=== PATIENT | female | born 1975 | race Caucasian/White ===

== ENCOUNTER 2016-08-11 20:39 | Observation (INO) ==
[2016-08-11 21:03] LABS: MANUAL DIFF NEEDED? NO
[2016-08-11 21:07] LABS: BASO% 0.3 % (0.0-0.8); HEMATOCRIT 53.8 % (37.0-47.0); HEMOGLOBIN 18.2 g/dL (12.0-16.0); IMM GRAN# 0.02 X1000 (0.0-0.04); IMM GRAN% 0.2 % (0.0-0.5); LYMPH% 18.1 % (20.5-51.1); MCH 34.5 PG (27-31); MCHC 33.8 g/dL (33-37); MCV 102.1 FL (81-99); MONO# 0.88 X1000 (0.11-0.59); MONO% 8.9 % (1.7-9.3); MPV 10.9 FL (7.4-10.4); NEUT% 71.5 % (42.2-75.2); PLT 268 X1000 (130-400); RBC 5.27 XMIL (4.2-5.4)
[2016-08-11 21:35] LABS: ALBUMIN 4.1 g/dL (3.5-5.0); CALCIUM 9.2 mg/dL (8.8-10.2); POTASSIUM 4.1 mmol/L (3.5-5.1); TOTAL BILIRUBIN 0.47 mg/dL (0.20-1.00); TOTAL PROTEIN 7.4 g/dL (6.3-8.3)
--- NOTE | 2016-08-11 22:29 | PROVIDER DOCUMENTATION ---
HPI-Abdominal Pain/GI Problem - General Chief Complaint: Nausea/Vomiting Stated Complaint: VOMITING, BACK/SIDE PAIN Time Seen by Provider: 08/11/16 22:06 Source: patient Allergies/Adverse Reactions: Patient Allergies Allergy/AdvReac Type Severity Reaction Status Date / Time bupropion HCl * Allergy HIVES Verified 08/11/16 22:13 [From Wellbutrin] Home Medications: Home Medication List Medication Instructions Recorded Confirmed Last Taken Type Oxycodone HCl 30 mg PO 5XDAY 12/13/14 08/11/16 08/11/16 History Aclidinium [place] Inhaler 1 puff INH PRN PRN 09/09/15 08/11/16 03/31/16 History [Tudorza Pressair Inhaler] Budesonide/Formoterol Fumarate 10.2 gm IH PRN PRN 09/09/15 08/11/16 03/31/16 History [Symbicort 160-4.5 Mcg Inhaler] Furosemide [Lasix] 20 mg PO QAM 09/09/15 08/11/16 08/11/16 History Lidocaine 5% Cream [Lmx 5 Cream] 1 applicatn TOP 4XDAY PRN PRN 09/09/1508/11/16 History Potassium Chloride E.r. [Micro-K] 10 meq PO QAM 09/09/15 08/11/16 08/11/16 History Oxycodone I.r. [Oxy Ir] 15 mg PO Q6H PRN PRN #12 tablet 09/12/15 08/11/16 Rx Estradiol 2 mg PO QAM 08/11/16 08/11/16 08/11/16 History - History of Present Illness-ABD Nature of Presenting Problems: 41 Y/O F presents to ED with Abdominal Pain. Pt c/o of abd pain with N/D no V. Pt states that she has a 2 day onset hx of pain stated that it went away and then came back yesterday. Right sided ABD pain with chills,diaphoretic. Last BM today around 12pm Abdominal Pain Onset Location: reports: RLQ Pain Radiation: reports: no radiation Quality of Pain: reports: cramping Severity in ED: reports: moderate Onset/Duration: reports: 2 days ago Timing: reports: still present Activities at Onset: reports: none Exposure to sick contacts?: No Associated Symptoms: reports: diaphoresis, diarrhea, fever/chills (chills no fever), nausea Last BM: this afternoon Review of Systems - Adult - REVIEW OF SYSTEMS - ADULT Constitutional: reports: chills. denies: fever Eyes: reports: no symptoms reported Ears, Nose, Mouth & Throat: reports: no symptoms reported Cardiovascular: reports: no symptoms reported Respiratory: denies: cough, shortness of breath Gastrointestinal: reports: abdominal pain, diarrhea, nausea. denies: vomiting Genitourinary: reports: no symptoms reported Musculoskeletal: reports: no symptoms reported Integumentary: reports: no symptoms reported Neurological: reports: no symptoms reported Psychiatric: reports: no symptoms reported Endocrine: reports: no symptoms reported Hematologic/Lymphatic: reports: no symptoms reported Allergic/Immunologic: reports: no symptoms reported All Other Systems: Reviewed and Negative Past History - Adult - PAST MEDICAL HISTORY-ADULT Review of Records: reports: Old Records Reviewed, Nursing Assessment Review, Medications Reviewed, Social history reviewed & non-contributory. Major Childhood Illnesses: reports: denies history Cardiovascular: reports: denies history Respiratory: reports: denies history Gastrointestinal: reports: denies history Obstetrical/Gynecological: reports: denies history Genitourinary: reports: denies history Musculoskeletal: reports: arthritis, chronic pain, intervertebral disc disease, neck/back injury Neurological: reports: denies history Endocrine/Immune: reports: denies history Other Conditions: reports: denies history - PRIOR SURGERIES/PROCEDURES Surgical/Procedure History: reports: tonsillectomy, other (D&C, TMJ) - IMMUNIZATION STATUS Childhood Immunizations: See Nurse Assessment Flu Vaccine: See Nurse Assessment - FAMILY HISTORY Family History: reviewed, not pertinent - SOCIAL HISTORY Smoking: cigarettes, greater than 1 pack/day Alcohol Use Frequency: occasionally Living Situation: family Physical Exam-General - PHYSICAL EXAM-ADULT Initial Vital Signs Reviewed: Yes - CONSTITUTIONAL General Appearance: appears well, alert, no apparent distress - EYES Eyes: PERRL/EOMI, pink conjunctivae, fundi clear, no AV nicking - HEAD, EARS, NOSE, MOUTH & THROAT HENMT: normocephalic/atraumatic, moist mucous membranes, normal ENT inspection, TMs normal, pharynx normal - NECK Neck: non-tender, full range of motion, supple, normal inspection - RESPIRATORY Respiratory: chest non-tender, lungs clear, normal breath sounds - CARDIOVASCULAR Cardiovascular: normal peripheral pulses, regular rate, rhythm - GASTROINTESTINAL (ABDOMEN) Abdominal Exam: guarding, tenderness (LLQ>RLQ) - LYMPHATIC Lymphatic: no adenopathy - MUSCULOSKELETAL Back Exam: normal inspection, no CVA tenderness, no vertebral tenderness Extremity: normal range of motion, non-tender - SKIN Integumentary: normal color, normal turgor, warm/dry - NEUROLOGIC Neurologic: loss prevention lead II-XII nml as tested - PSYCHIATRIC Psych/Mental Status: normal mood/affect, normal thought content, normal thought process, oriented x 3 Progress - PLAN OF CARE/RESULTS Progress/Plan/Lab Results: Laboratory Tests 08/11/16 08/11/16 08/11/16 20:52 20:52 20:52 WBC 9.93 RBC 5.27 Hgb 18.2 H Hct 53.8 H MCV 102.1 H MCH 34.5 H MCHC 33.8 RDW Std Deviation 13.0 Plt Count 268 MPV 10.9 H Immature Gran % (Auto) 0.2 Neut % (Auto) 71.5 Lymph % (Auto) 18.1 L [place] % (Auto) 8.9 Eos % (Auto) 1.0 Baso % (Auto) 0.3 Immature Gran # (Auto) 0.02 Neut # (Auto) 7.10 H Lymph # (Auto) 1.80 [place] # (Auto) 0.88 H Eos # (Auto) 0.10 Baso # (Auto) 0.03 D-Dimer 1.08 H Sodium 141 Potassium 4.1 Chloride 97 L Carbon Dioxide 27 Anion Gap 17 BUN 10 Creatinine 1.3 H Estimated GFR/1.73 m2 45 BUN/Creatinine Ratio 8 Glucose 97 Calculated Osmolality 280 Calcium 9.2 Total Bilirubin 0.47 AST 26 ALT 25 Alkaline Phosphatase 127 H Total Protein 7.4 Albumin 4.1 Globulin 3.3 Albumin/Globulin Ratio 1.2 Amylase 36 Lipase 41 Urine Source Urine Color Urine Turbidity Urine pH Ur Specific Filer Urine Protein Ur Glucose (Stick) Ur Ketones (Stick) Urine Blood Urine Nitrite Urine Bilirubin Urobilinogen Dipstick Urine Leukocytes Urine WBC (Auto) Urine RBC (Auto) U Epithel Cells (Auto) Urine Bacteria (Auto) 08/11/16 22:30 WBC RBC Hgb Hct MCV MCH MCHC RDW Std Deviation Plt Count MPV Immature Gran % (Auto) Neut % (Auto) Lymph % (Auto) [place] % (Auto) Eos % (Auto) Baso % (Auto) Immature Gran # (Auto) Neut # (Auto) Lymph # (Auto) [place] # (Auto) Eos # (Auto) Baso # (Auto) D-Dimer Sodium Potassium Chloride Carbon Dioxide Anion Gap BUN Creatinine Estimated GFR/1.73 m2 BUN/Creatinine Ratio Glucose Calculated Osmolality Calcium Total Bilirubin AST ALT Alkaline Phosphatase Total Protein Albumin Globulin Albumin/Globulin Ratio Amylase Lipase Urine Source CLEAN CATCH Urine Color YELLOW Urine Turbidity HAZY Urine pH 6.0 Ur Specific Filer 1.003 Urine Protein 50 A Ur Glucose (Stick) NEGATIVE Ur Ketones (Stick) NEGATIVE Urine Blood NEGATIVE Urine Nitrite NEGATIVE Urine Bilirubin NEGATIVE Urobilinogen Dipstick NORMAL Urine Leukocytes NEGATIVE Urine WBC (Auto) 10-20 A Urine RBC (Auto) <10 U Epithel Cells (Auto) >10 A Urine Bacteria (Auto) 3+ Orders Category Date Time Status Admit - [facility] Routine AdmDCTranf 08/11/16 23:53 Ordered Activity - Bed Rest with BRP ORDERED Care 08/11/16 23:53 Ordered Call Admitting on Arrival AT ADMISSION Care 08/11/16 23:53 Ordered Neurological Check Q4H Care 08/11/16 23:53 Ordered Saline Loc DIRECTED Care 08/11/16 20:49 Active Saline Loc DIRECTED Care 08/11/16 23:53 Ordered NPO Diet 08/11/16 20:49 Active ANKLE COMPLETE LEFT [RAD] Stat Exams 08/11/16 20:[address] ABD/PELVIS W/ IV CONT ONLY [CT] Stat Exams 08/11/16 22:35 Taken FLAT/UPRIGHT ABD/1 VIEW CHEST [RAD] Stat Exams 08/11/16 21:22 Taken AMYLASE [CHEM] Stat Lab 08/11/16 20:52 Completed CBC WITH ELECTRONIC DIFF [HEME] Stat Lab 08/11/16 20:52 Completed COMPREHENSIVE METABOLIC PANEL [CHEM] Stat Lab 08/11/16 20:52 Completed D-DIMER [CHEM] Stat Lab 08/11/16 20:52 Completed LIPASE [CHEM] Stat Lab 08/11/16 20:52 Completed URINALYSIS W/POSS RFLX CULT [URINALYSIS] Stat Lab 08/11/16 22:30 Completed 0.9% Sodium Chloride Inj [Ns] 1,000 ml Med 08/11/16 22:35 Discontinued IV 999 mls/hr 0.9% Sodium Chloride Inj [Ns] 1,000 ml Med 08/11/16 23:51 Active IV 999 mls/hr CefTRIAXONE 1 GM/NS [Rocephin 1 gm/Ns] 50 ml Med 08/11/16 23:29 Active IV NOW Morphine Med 08/11/16 23:53 Ordered 2 mg IV Q4H PRN PRN Ondansetron [Zofran] Med 08/11/16 22:35 Discontinued 4 mg IV NOW ONE Ondansetron [Zofran] Med 08/11/16 23:53 Ordered 4 mg IV Q4H PRN PRN Pantoprazole [Protonix] Med 08/11/16 22:35 Discontinued 40 mg IV NOW ONE Piperacil/Tazobact 4.5 gm/Ns [Zosyn 4.5 gm/Ns] 100 ml Med 08/11/16 23:51 Active IV NOW Promethazine [Phenergan] Med 08/11/16 23:02 Discontinued 25 mg IV NOW ONE Sodium Chloride 0.9% Med 08/11/16 22:35 Discontinued 10 ml INJ NOW ONE Sodium Chloride 0.9% Med 08/11/16 23:02 Discontinued 10 ml INJ NOW ONE Vital Signs - 24 hr 08/11/16 20:45 Temperature 98.3 F Pulse Rate 105 H Respiratory 14 Rate Blood Pressure 156/105 O2 Sat by Pulse 100 Oximetry - XRAY 1 XRAY Study: Abdomen Impression: Normal XRAY Interpretation: Nonspecific gas - CT/MRI 1 CT Study: Abdomen Impression: Abnormal (Abnormal appendix suspicious for acute appendicitis. No significant adjacent inflammatory changes are seen. Mild wall thickening of the cecum is indeterminate.) - CONSULTS/PCP/HOSPITALIST Notification #1 *Consult/PCP/Hospitalist*: Time Discussed: 23:52 Reason/Comments: Plan of Care Consult Disposition: Admit (Admit accepted) Departure - Departure Time of Disposition Order: 23:57 DIAGNOSIS: Abdominal pain Qualifiers: Abdominal location: unspecified location Qualified Code(s): R10.9 - Unspecified abdominal pain Appendicitis Qualifiers: Appendicitis type: acute appendicitis Acute appendicitis type: unspecified acute appendicitis type Qualified Code(s): K35.80 - Unspecified acute appendicitis Disposition: ADMITTED INPATIENT 09 Certified Medical Emergency: Emergent Condition: Stable Additional Instructions: ED Follow Up Instructions: You have been treated by a care provider in the Emergency Department. These instructions are being provided to you so you can have an understanding of how to care for yourself upon discharge. Upon discharge from the Emergency Department, you are responsible for making arrangements for follow-up care by a physician of your choice. Take all prescribed medications as directed. Return to the Emergency Department immediately for any new or worsening symptoms. You may call the Physician Referral phone number at [phone] to obtain a list of Physicians who are taking new patients. Attestation - Scribe Verification/Attestation Scribe:: Kayce Newton Acting as Scribe for:: Tristan Potter Scribe documention review:: This chart was documented by a scribe and accurately reflects the service the provider performed and the decisions made by the provider.
[2016-08-11] MEDS ORDERED: PROTONIX IV ONE (22:35)
[2016-08-11] MEDS ORDERED: NS 1,000 ML IV ONE ×2 (22:35→23:51)
[2016-08-11] MEDS ORDERED: ZOFRAN IV ONE (22:35)
[2016-08-11] MEDS ORDERED: SODIUM CHLORIDE 0.9% INJ ONE ×2 (22:35→23:02)
[2016-08-11 22:46] LABS: URINE SOURCE CLEAN CATCH
[2016-08-11 22:51] LABS: BILIRUBIN URINE NEGATIVE (NEGATIVE); BLOOD URINE NEGATIVE (NEGATIVE); COLOR YELLOW; GLUCOSE URINE NEGATIVE (NEGATIVE); LEUKOCYTES URINE NEGATIVE (NEGATIVE); NITRITE URINE NEGATIVE (NEGATIVE); PROTEIN URINE 50 mg/dL (NEGATIVE); SP GRAVITY URINE 1.003; TURBIDITY URINE HAZY (CLEAR); UROBILINOGEN URINE NORMAL (NORMAL)
[2016-08-11 22:53] LABS: UR EPITHELIAL CELLS >10 /HPF (<10); URINE BACTERIA 3+ /HPF; URINE RBC <10 /HPF (<10)
[2016-08-11] MEDS ORDERED: PHENERGAN IV ONE (23:02)
[2016-08-11] MEDS ORDERED: ROCEPHIN 1 GM/NS 50 ML IV ONE (23:29)
[2016-08-11] MEDS ORDERED: ZOSYN 4.5 GM/NS 100 ML IV ONE (23:51)
[2016-08-12] MEDS ORDERED: MORPHINE ONE ×2 (00:41→17:56)
[2016-08-12] MEDS: MORPHINE IV PRN ×6 (00:52→23:29)
[2016-08-12 01:31] LABS: URINE CULTURE NEEDED? YES; URINE MICRO REVIEW NEEDED? YES
[2016-08-12 01:32] LABS: URINE CASTS NONE SEEN; URINE CRYSTALS NONE SEEN; URINE SMALL ROUND CELLS NONE SEEN
[2016-08-12] MEDS: ZOFRAN IV PRN ×2 (06:30→19:11)
--- NOTE | 2016-08-12 06:59 | HISTORY AND PHYSICAL ---
CHIEF COMPLAINT: Diffuse abdominal pain, nausea, vomiting. HISTORY OF PRESENT ILLNESS: This is a 41-year-old lady who presents to the ED with abdominal pain. It seems to be worse in the left lower quadrant, but it is periumbilical as well. She also has nausea and vomiting that has been ongoing for weeks, but it seems to have worsened over the past couple of days, along with her abdominal pain. Because of that, she sought medical attention. A CT scan was done revealing an enlarged appendix. PAST MEDICAL AND SURGICAL HISTORY: She has a history of hypertension. She has a history of chronic back pain, for which she is under the care of a pain management physician. Her previous surgery includes TMJ surgery, bilateral tubal ligation, tonsillectomy, and hysterectomy 1 year ago. MEDICATIONS: Her medications include losartan daily, the dose of which she does not recall; Lasix 20 mg daily, Micro-K 10 mEq p.o. every a.m., estradiol 2 mg p.o. every a.m., oxycodone 30 mg p.o. 5 times a day, Oxy IR 15 mg every 6 hours p.r.n., Tudorza Pressair inhaler 1 puff as needed, Symbicort 160/4.5 mcg inhaler p.r.n., lidocaine 5% cream applied topically 4 times a day. ALLERGIES: She is allergic to Wellbutrin. SOCIAL HISTORY: She does smoke 1 pack per day. She occasionally drinks alcohol. FAMILY HISTORY: Noncontributory. REVIEW OF SYSTEMS: Pertinent for back pain chronically, the nausea and vomiting that she has experienced recently. She denies any fever or chills. Her other subsystems are negative. PHYSICAL EXAMINATION: VITAL SIGNS: Temperature is 99.1 degrees, heart rate 83, respiratory rate 16, blood pressure 148/101. HEENT: Normocephalic. No intraoral lesions are noted. NECK: Without adenopathy. LUNGS: Clear. HEART: Regular rate and rhythm. ABDOMEN: Soft. Bowel sounds are hypoactive. I did not elicit any significant or rebound tenderness. Psoas sign is negative. No masses are palpated. DIAGNOSTIC DATA: White count is 9900, hemoglobin 18, hematocrit 53. ASSESSMENT AND PLAN: Enlarged appendix consistent with acute appendicitis on CT. Her clinical exam is quite benign. I discussed the recommendation of proceeding with appendectomy. She wants to do that. We will proceed later today. She will stay nothing by mouth. We will give her intravenous fluids for hydration.
[2016-08-12] MEDS: NS 1,000 ML IV SCH (07:32)
--- NOTE | 2016-08-12 08:10 | Diag Imaging Result Document ---
PROCEDURE NAME: CT ABD/PELVIS W/ IV CONT ONLY - 08/11/2016 CT ABDOMEN AND PELVIS WITH INTRAVENOUS CONTRAST: A CT dose reduction protocol was used. COMPARISON: 01/12/2015. FINDINGS: The appendix is greatly dilated measuring about 15 mm and filled with fluid. No significant inflammation of the surrounding fat. Mild wall thickening of the cecum adjacent to this is indeterminate. There is significant collapse of bowel in this region. No free air, free fluid, or lymphadenopathy. Uterus is absent. Urinary bladder and rectum are normal. The lung bases are clear except for a granuloma in the right lower lobe. Heart size is normal. The liver, gallbladder, spleen, pancreas, adrenals, and kidneys are unremarkable. Bony structures are intact. IMPRESSION: Dilated appendix compatible with acute appendicitis. [facility]
--- NOTE | 2016-08-12 08:36 | Diag Imaging Result Document ---
PROCEDURE NAME: FLAT/UPRIGHT ABD/1 VIEW CHEST - 08/11/2016 PLAIN RADIOGRAPH OF THE CHEST AND ABDOMEN, 3 VIEWS: COMPARISON: Chest radiograph dated 03/31/2016. FINDINGS: There are grossly unremarkable bowel gas and stool patterns. There is no obstructive bowel pattern. There is no evidence of large-volume free abdominal gas. There are a couple of phleboliths that project over the pelvis. There are calcified splenic granulomata. There is no evidence of organomegaly. There is a calcified granuloma in the right lower lung zone peripherally and calcified right hilar lymph nodes indicating prior granulomatous disease. The lungs are clear otherwise. Cardiac silhouette and central vasculature are unremarkable. IMPRESSION: No definite acute pathology by plain radiograph.
--- NOTE | 2016-08-12 08:44 | Diag Imaging Result Document ---
PROCEDURE NAME: ANKLE COMPLETE LEFT - 08/11/2016 PLAIN RADIOGRAPH OF THE LEFT ANKLE, 3 VIEWS: COMPARISON: None available. FINDINGS: There is no discrete fracture, dislocation, or intrinsic osseous lesion. The joint spaces are preserved. There is, perhaps, minimal soft tissue edema overlying the lateral malleolus. IMPRESSION: No definite acute osseous abnormality.
[2016-08-12] MEDS ORDERED: PHENERGAN IV ONE (10:14)
[2016-08-12] MEDS ORDERED: SODIUM CHLORIDE 0.9% INJ ONE (10:14)
[2016-08-12] MEDS ORDERED: INVANZ 1 GM/NS 50 ML ONE (16:26)
[2016-08-12] MEDS ORDERED: MARCAINE 0.25% PF/EPI 1:200,000 ONE (16:29)
[2016-08-12] MEDS ORDERED: LR 1,000 ML ONE (16:29)
[2016-08-12] MEDS: DILAUDID ONE ×4 (17:30→17:45)
[2016-08-12] MEDS: PHENERGAN ONE ×2 (17:52→18:00)
[2016-08-12] MEDS ORDERED: NS 500 ML ONE (17:55)
[2016-08-12] MEDS ORDERED: DIPRIVAN 1% ONE (17:57)
[2016-08-12] MEDS ORDERED: FENTANYL ONE (17:57)
[2016-08-12] MEDS ORDERED: OXY IR PO PRN (18:09)
[2016-08-12] MEDS ORDERED: TUDORZA PRESSAIR INHALER INH PRN (18:09)
[2016-08-12] MEDS ORDERED: LMX 5 CREAM TOP PRN (18:09)
--- NOTE | 2016-08-12 18:18 | OPERATIVE NOTE ---
PROCEDURE DATE: 08/12/2016 PROCEDURE: Laparoscopic appendectomy. SURGEON: Galdino Langston MD ANTIQUE FURNITURE REPAIRER: Noe. PREOPERATIVE DIAGNOSIS: Acute appendicitis. POSTOPERATIVE DIAGNOSIS: Acute appendicitis. DESCRIPTION OF PROCEDURE: Satisfactory general endotracheal anesthesia was achieved, the abdomen was prepped and draped in a sterile fashion. We anesthetized skin of the umbilicus, incised the skin, and introduced a 5 trocar Optiview technique into the abdominal cavity. We insufflated through this trocar. Under direct visualization, a 12 trocar in the lower hypogastrium, 5 trocar in the right lower quadrant. We placed the patient in Trendelenburg and turned her to the left. We identified the appendix. It was enlarged and injected. We grasped the mesoappendix, used the LigaSure to divide the mesoappendix down to the base of the appendix. We then introduced the Endo- OBEY hargrove cartridge, stapled, and divided the base of the appendix. We then placed the appendix within a Pleatman pouch and delivered it out of the abdominal cavity. We looked back. Hemostasis was satisfactory. No other evidence of abnormality was identified. We then desufflated and removed our trocars. We closed the fascia at the lower hypogastric trocar site with a 2-0 Polysorb [id number] fascial stitch. We then closed the skin at each incision 4-0 Polysorb subcuticular stitches. Sterile OpSite were applied. She tolerated it well, was sent to the recovery room in satisfactory condition.
[2016-08-12] MEDS: OXYCONTIN PO SCH (20:45)
[2016-08-13] MEDS: OXY IR PO PRN ×2 (02:00→09:21)
[2016-08-13] MEDS: MORPHINE IV PRN (05:06)
[2016-08-13] MEDS: NS 1,000 ML IV SCH (05:06)
[2016-08-13] MEDS ORDERED: ZOFRAN ONE (08:14)
[2016-08-13] MEDS ORDERED: QUELICIN (DOSE) ONE (08:14)
[2016-08-13] MEDS ORDERED: DECADRON ONE (08:14)
[2016-08-13] MEDS ORDERED: XYLOCAINE-MPF 2% ONE (08:14)
[2016-08-13 08:35] VITALS: BP 120/71
[2016-08-13] MEDS ORDERED: ESTRACE PO SCH (09:00)
[2016-08-13] MEDS ORDERED: KLOR-CON PO SCH (09:00)
[2016-08-13] MEDS ORDERED: LASIX PO SCH (09:00)
[2016-08-13] MEDS: OXYCONTIN PO SCH (11:17)
== END 2016-08-13 11:43 | disposition home or self-care (01) ==
LOC: ED 20:39 → EDIPHOLD 08-12 04:08 → 3N 08-12 07:07
PROVIDERS: ADMIT Surgery; ATTEND Surgery
DX: K35.80 Unspecified acute appendicitis (principal); J44.9 Chronic obstructive pulmonary disease, unspecified; I10 Essential (primary) hypertension; G89.29 Other chronic pain; R10.9 Unspecified abdominal pain; R11.2 Nausea with vomiting, unspecified; R10.32 Left lower quadrant pain; M54.9 Dorsalgia, unspecified; R19.7 Diarrhea, unspecified; R61 Generalized hyperhidrosis; Z79.899 Other long term (current) drug therapy; Z79.891 Long term (current) use of opiate analgesic; Z79.890 Hormone replacement therapy; F17.210 Nicotine dependence, cigarettes, uncomplicated
CPT/HCPCS: 36415; 74022; 74177; 80053; 81001; 82150; 83690; 85025; 85379; 87088; 88304; 88313; 96361; 96365; 96367; 96375; 96376; C9113; G0378; J0330; J0696; J1100; J1170; J1335; J2270; J2405; J2543; J2550; J3010; J7030; J7040; J7120; Q9967; S0164

== ENCOUNTER 2019-02-22 12:28 | Observation (INO) ==
[2019-02-22] MEDS ORDERED: ZOFRAN ODT PO ONE (12:45)
[2019-02-22] MEDS ORDERED: VITAMIN B-1 PO ONE (12:45)
[2019-02-22] MEDS ORDERED: ASPIRIN PO ONE (12:51)
--- NOTE | 2019-02-22 12:54 | PROVIDER DOCUMENTATION ---
HPI-Chest Pain - General Chief Complaint: Chest Pain Stated Complaint: CP,SOB,DIZZINESS,NAUSEA Time Seen by Provider: 02/22/19 12:38 Source: patient Allergies/Adverse Reactions: Patient Allergies Allergy/AdvReac Type Severity Reaction Status Date / Time bupropion HCl * Allergy HIVES Verified 02/23/18 19:15 [From Wellbutrin] Home Medications: Home Medication List Medication Instructions Recorded Confirmed Last Taken Type Oxycodone I.r. [Oxy Ir] 30 mg PO TID PRN 08/12/16 02/23/18 02/23/18 07:00 History Morphine E.r. [Ms Contin] 30 mg PO Q12HR 02/23/18 02/23/18 02/23/18 07:00 History ATORVAstatin [Lipitor] 40 mg PO QHS #30 tab 02/25/18 Unknown Rx Aspirin [Aspirin EC] 81 mg PO QAM #30 tablet.dr 02/25/18 Unknown Rx Felodipine [Felodipine ER] 5 mg PO QAM #30 tab.er.24h 02/25/18 Unknown Rx Furosemide [Lasix] 20 mg PO QAM #30 tab 02/25/18 Unknown Rx Potassium Chloride E.r. [Micro-K] 10 meq PO QAM #30 cap 02/25/18 Unknown Rx Ubidecarenone/Vitamin E Mixed 400 mg PO DAILY #30 cap 02/25/18 Unknown Rx [Coq10 Sg 100 Softgel] Dicyclomine [Bentyl] 10 mg PO 4XDAY #50 cap 03/23/18 Unknown Rx Famotidine [Pepcid] 20 mg PO DAILY #30 tab 03/23/18 Unknown Rx Loperamide HCl [Imodium A-D] 2 mg PO DIRECTED #30 tab 03/23/18 Unknown Rx Ondansetron [Zofran Odt] 4 mg PO Q6-8H PRN PRN #20 03/23/18 Unknown Rx tab.rapdis - History of Present Illness-CP Nature of Presenting Problem: 89 YO F pmh for CAD s/p CABG 2 years ago presents with an episode of substernal CP that began 3 hours ago. Some associated nausea and diaphoresis. Pt states the pain is easing up some. She had the CABG performed in [place] and has not followed up with cardiology since. Location: reports: substernal Chest Pain Radiation: reports: no radiation Quality of Pain: reports: fullness, pressure, sharp Onset/Duration: 1-3 hours ago Timing: still present, improving Context/Activities at Onset: reports: light activity Modifying Factors: improves with: nothing Associated Symptoms: reports: diaphoresis, dizziness, nausea Nitro Today/Relief: no nitro taken today Aspirin Treatment Today: no aspirin today Similar Symptoms Previously?: Yes Recently Seen Here or By Another Healthcare Provider: No Review of Systems - Adult - REVIEW OF SYSTEMS - ADULT Constitutional: reports: see HPI. denies: chills, fever Eyes: reports: no symptoms reported Ears, Nose, Mouth & Throat: reports: no symptoms reported Cardiovascular: reports: chest pain, palpitations. denies: edema Respiratory: denies: cough, shortness of breath, wheezing Gastrointestinal: reports: no symptoms reported Genitourinary: reports: no symptoms reported Musculoskeletal: reports: no symptoms reported Integumentary: reports: other (diaphoresis) Neurological: reports: dizziness/vertigo. denies: headache/migraines, syncope Psychiatric: reports: anxiety Endocrine: reports: no symptoms reported Hematologic/Lymphatic: reports: no symptoms reported Past History - Adult - PAST MEDICAL HISTORY-ADULT Review of Records: reports: Old Records Reviewed, Nursing Assessment Review Major Childhood Illnesses: reports: denies history Cardiovascular: reports: HTN, hyperlipidemia Respiratory: reports: denies history Gastrointestinal: reports: denies history Obstetrical/Gynecological: reports: denies history Genitourinary: reports: denies history Musculoskeletal: reports: arthritis, chronic pain, intervertebral disc disease, neck/back injury Neurological: reports: denies history Psychiatric: reports: denies history Endocrine/Immune: reports: denies history Other Conditions: reports: denies history - PRIOR SURGERIES/PROCEDURES Surgical/Procedure History: reports: appendectomy, CABG, hysterectomy, BTL, tonsillectomy, other (D&C, TMJ) - IMMUNIZATION STATUS Childhood Immunizations: See Nurse Assessment Flu Vaccine: See Nurse Assessment - FAMILY HISTORY Family History: reviewed, not pertinent - SOCIAL HISTORY Smoking: cigarettes Substance Use: alcohol Alcohol Use Frequency: every day Number of drinks per typical drinking period:: 3-4 drinks Living Situation: family Physical Exam-General - PHYSICAL EXAM-ADULT Initial Vital Signs Reviewed: Yes - CONSTITUTIONAL General Appearance: alert, anxious - EYES Eyes: PERRL/EOMI, pink conjunctivae - HEAD, EARS, NOSE, MOUTH & THROAT HENMT: moist mucous membranes - NECK Neck: full range of motion, supple - RESPIRATORY Respiratory: lungs clear, no pleuratic chest pain, no respiratory distress - CARDIOVASCULAR Cardiovascular: no murmur, tachycardia - GASTROINTESTINAL (ABDOMEN) Abdominal Exam: non tender, soft - MUSCULOSKELETAL Back Exam: normal inspection, no CVA tenderness Extremity: normal range of motion, normal gait, normal inspection - SKIN Integumentary: diaphoresis - NEUROLOGIC Neurologic: grossly normal, no motor/sensory deficits - PSYCHIATRIC Psych/Mental Status: oriented x 3, anxious - HEART Score HEART Score: History: Moderately Suspicious HEART Score: ECG: Normal HEART Score: Age: 45-65 Years HEART Score: Risk Factors for Atherosclerotic Disease: > or = 3 Risk Factors or History of Atherosclerotic Disease HEART Score: Troponin: < or = Normal Limit Total HEART Score:: 4 Progress - PLAN OF CARE/RESULTS Progress/Plan/Lab Results: Vital Signs - 8 hr 02/22/19 12:33 02/22/19 13:01 02/22/19 14:01 Temperature 98.4 F Pulse Rate 96 H 92 H 79 Respiratory Rate 18 19 18 Blood Pressure 161/110 142/100 130/100 O2 Sat by Pulse Oximetry 97 95 95 Laboratory Results - last 24 hr 02/22/19 02/22/19 02/22/19 13:19 13:19 13:19 WBC 10.13 RBC 5.15 Hgb 17.2 H Hct 50.9 H MCV 98.8 MCH 33.4 H MCHC 33.8 RDW Std Deviation 12.6 Plt Count 229 MPV 10.7 H Immature Gran % (Auto) 0.3 Neut % (Auto) 79.6 H Lymph % (Auto) 13.3 L [place] % (Auto) 6.2 Eos % (Auto) 0.3 Baso % (Auto) 0.3 Immature Gran # (Auto) 0.03 Neut # (Auto) 8.06 H Lymph # (Auto) 1.35 [place] # (Auto) 0.63 H Eos # (Auto) 0.03 Baso # (Auto) 0.03 Sodium 141 Potassium 4.3 Chloride 96 L Carbon Dioxide 28 Anion Gap 17 BUN 11 Creatinine 0.6 Estimated GFR/1.73 m2 > 60 BUN/Creatinine Ratio 18 Glucose 143 H Calculated Osmolality 283 Calcium 9.2 Total Bilirubin 0.77 AST 54 H ALT 44 H Alkaline Phosphatase 91 Creatine Kinase 109 Troponin T < 0.010 Total Protein 7.2 Albumin 4.6 Globulin 2.6 Albumin/Globulin Ratio 1.8 TSH 02/22/19 02/22/19 13:19 16:23 WBC RBC Hgb Hct MCV MCH MCHC RDW Std Deviation Plt Count MPV Immature Gran % (Auto) Neut % (Auto) Lymph % (Auto) [place] % (Auto) Eos % (Auto) Baso % (Auto) Immature Gran # (Auto) Neut # (Auto) Lymph # (Auto) [place] # (Auto) Eos # (Auto) Baso # (Auto) Sodium Potassium Chloride Carbon Dioxide Anion Gap BUN Creatinine Estimated GFR/1.73 m2 BUN/Creatinine Ratio Glucose Calculated Osmolality Calcium Total Bilirubin AST ALT Alkaline Phosphatase Creatine Kinase Troponin T < 0.010 Total Protein Albumin Globulin Albumin/Globulin Ratio TSH 1.99 Orders Category Date Time Status Cardiac Monitoring DIRECTED Care 02/22/19 13:06 Active Saline Loc NOW Care 02/22/19 12:46 Active cxr [CHEST-1 VIEW] [RAD] Stat Exams 02/22/19 13:06 Completed CBC WITH ELECTRONIC DIFF [HEME] Stat Lab 02/22/19 13:19 Completed CK PROFILE [SP CHEM] Stat Lab 02/22/19 13:19 Completed COMPREHENSIVE METABOLIC PANEL [CHEM] Stat Lab 02/22/19 13:19 Completed TROPONIN T Stat Lab 02/22/19 13:19 Completed TROPONIN T Stat Lab 02/22/19 16:23 Completed TSH Stat Lab 02/22/19 13:19 Completed 0.9% Sodium Chloride Inj [Ns] 1,000 ml Med 02/22/19 14:44 Discontinued IV 999 mls/hr Aspirin Med 02/22/19 12:51 Discontinued 324 mg PO NOW ONE Lorazepam [Ativan] Med 02/22/19 14:44 Discontinued 0.5 mg PO NOW ONE Ondansetron Odt [Zofran Odt] Med 02/22/19 12:45 Discontinued 4 mg PO NOW ONE Thiamine [Vitamin B-1] Med 02/22/19 12:45 Discontinued 100 mg PO NOW ONE EKG [EKG] Stat Ther 02/22/19 12:45 Draft Transfer/Admit Order [TRANSFER] Routine Transfer 02/22/19 16:52 Ordered Result Diagrams: 02/22/19 13:19 02/22/19 13:19 - REASSESSMENT Reassessment #1 Time Reassessed: 14:43 Status: improving (pt states her nausea is improving. states she drinks a couple shots of whiskey but not every day. her last time was last night. she is shaky on exam. will give fluids and ativan.) Reassessment #2 Time Reassessed: 16:26 Status: improving (pt improving, HR down. Will finish fluids then plan for discharge with follow up if 2nd trop is normal. Rx for atarax.) - EKG 1 Time of EKG reading by physician:: 12:42 EKG Read and Signed by:: You Angulo EKG Interpretation (*Must complete 3 of following elements*): Abnormal Rate: 95 Rhythm: NSR [place]: normal [place] Interval: normal ST Wave: non-specific ST changes (t wave abnormality, similar to previous EKG Mar 2017.) Prior EKG Comparison: unchanged from prior - XRAY 1 XRAY Study: Chest Impression: See EMR Report (HISTORY: CP TECHNIQUE: Portable chest COMPARISON: 02/23/2018 FINDINGS: The lungs are well expanded. The heart is not enlarged. There are sternal wires. The vessels are not distended. There are no infiltrates. No effusion identified. Right granuloma with calcified right hilar nodes. IMPRESSION: No acute abnormality. Electronically signed by Robby Sanchez 02/22/2019 1:28 PM) - CONSULTS/PCP/HOSPITALIST Notification #1 *Consult/PCP/Hospitalist*: Dr. Hagan Time Discussed: 16:52 Consult Disposition: Will see in ED Departure - Departure Date of Disposition Decision: 02/22/19 Time of Disposition Decision: 16:48 DIAGNOSIS: Nausea, Chest pain, Coronary artery disease, Tachycardia Disposition: ADMITTED INPATIENT Certified Medical Emergency: Emergent Condition: Stable Referrals and Follow-Ups: None,PCP [Primary Care Provider] - - Critical Care Note This patient required my direct & personal management of CC.: No Attestation - Physician/ RIP Attestation The physician spent face to face time with patient:: Yes Advanced Practice Provider documentation review:: Supervising physician onsite and consulted in the evaluation and care of this patient. The physician did have a face to face encounter with the patient.
--- NOTE | 2019-02-22 13:08 | EKG Report ---
Test Performed on : 02/22/2019 12:34:50 PM Test Reason : CP Blood Pressure : / mmHG Vent. Rate : 095 BPM Atrial Rate : 095 BPM P-R Int : 134 ms QRS Dur : 068 ms QT Int : 372 ms P-R-T Axes : 078 060 095 degrees QTc Int : 467 ms Normal sinus rhythm. T wave abnormality, consider anterolateral ischemia Abnormal ECG When compared with ECG of 23-MAR-2018 09:26, Nonspecific T wave abnormality no longer evident in Inferior leads Nonspecific T wave abnormality has replaced inverted T waves in Lateral leads QT has shortened Unconfirmed Result
--- NOTE | 2019-02-22 13:31 | Diag Imaging Result Doc PS360 ---
EXAM: CHEST-1 VIEW HISTORY: CP TECHNIQUE: Portable chest COMPARISON: 02/23/2018 FINDINGS: The lungs are well expanded. The heart is not enlarged. There are sternal wires. The vessels are not distended. There are no infiltrates. No effusion identified. Right granuloma with calcified right hilar nodes. IMPRESSION: No acute abnormality. Electronically signed by Robby Sanchez 02/22/2019 1:28 PM
[2019-02-22 13:43] LABS: BASO# 0.03 X1000 (0.0-0.2); BASO% 0.3 % (0.0-0.8); EOS# 0.03 X1000 (0.0-0.7); EOS% 0.3 % (0.0-10.0); HEMATOCRIT 50.9 % (37.0-47.0); HEMOGLOBIN 17.2 g/dL (12.0-16.0); IMM GRAN# 0.03 X1000 (0.0-0.04); IMM GRAN% 0.3 % (0.0-0.5); LYMPH# 1.35 X1000 (1.2-3.4); LYMPH% 13.3 % (20.5-51.1); MCH 33.4 PG (27-31); MCHC 33.8 g/dL (33-37); MCV 98.8 FL (81-99); MONO# 0.63 X1000 (0.11-0.59); MONO% 6.2 % (1.7-9.3); MPV 10.7 FL (7.4-10.4); NEUT# 8.06 X1000 (1.4-6.5); NEUT% 79.6 % (42.2-75.2); PLT 229 X1000 (130-400); RBC 5.15 XMIL (4.2-5.4); RDW 12.6 % (11.5-14.5); WBC 10.13 X1000 (4.8-10.8)
[2019-02-22 14:11] LABS: AGAP 17; ALB/GLOB RATIO 1.8; ALBUMIN 4.6 g/dL (3.5-5.0); ALKALINE PHOSPHATASE 91 U/L (32-104); BUN 11 mg/dL (8-22); CALCIUM 9.2 mg/dL (8.8-10.2); CHLORIDE 96 mmol/L (98-107); CK PROFILE 109 U/L (24-173); COSMO 283; CREATININE 0.6 mg/dL (0.5-0.9); ESTIMATED GFR > 60; GLUCOSE 143 mg/dL (70-104); GOT 54 U/L (10-30); GPT 44 U/L (10-36); POTASSIUM 4.3 mmol/L (3.5-5.1); SODIUM 141 mmol/L (136-145); TCO2 28 mmol/L (25-35); TOTAL BILIRUBIN 0.77 mg/dL (0.20-1.00); TOTAL PROTEIN 7.2 g/dL (6.3-8.3)
[2019-02-22] MEDS ORDERED: NS 1,000 ML IV ONE (14:44)
[2019-02-22] MEDS ORDERED: ATIVAN PO ONE (14:44)
[2019-02-22] MEDS ORDERED: ZOFRAN IV PRN (18:26)
[2019-02-22] MEDS ORDERED: NITROGLYCERIN SL PRN (18:26)
[2019-02-22] MEDS ORDERED: TYLENOL PO PRN (18:26)
[2019-02-22] MEDS ORDERED: NS 1,000 ML ONE (20:48)
[2019-02-22] MEDS: MS CONTIN PO SCH (20:49)
[2019-02-22] MEDS ORDERED: LIPITOR PO SCH (21:00)
[2019-02-22] MEDS: LIPITOR PO SCH (22:19)
--- NOTE | 2019-02-22 22:56 | HISTORY AND PHYSICAL ---
PRIMARY CARE PHYSICIAN: None. POLICY DIRECTOR: None. CHIEF COMPLAINT: Chest pain that started at 9 a.m., nausea, vomiting, shortness of breath, shakiness and dizziness. HISTORY OF PRESENT ILLNESS: Ms. Guerra is a 43-year-old, female who carries a past medical history of coronary artery disease status post CABG in May 2017 at [facility] with Dr. Crowley. She reports she has had no follow-up since her discharge at [facility]. She reported this morning around 9 a.m. she started having some chest pain that was pressure-like, burning in sensation like heartburn that was nonradiating. She felt like her heart was pounding and having palpitations. She had some nausea and vomiting, shortness of breath, as well as associated dizziness. She reports she has been under extra stress over these past 2 years, as well as in recent months as she has a teenager, a 22-year-old and then 2 special needs children, 5 and 7, one with Down syndrome and one with autism. She reports she is not an alcoholic. She has states that she has been asked that question several times today. However, she states she might have a couple drinks on the weekend and some wine with dinner, but she does report having the shakes all the time. She does feel depressed. She was following a psychiatrist that she states that she just does not feel like getting out and getting ready to go to her follow-up appointment. However, she is able to make it to see her pain specialist in [place] monthly for her congenital right hip issues that cause her neck and back pain. Two sets of cardiac enzymes have been negative. We will admit her to the medical telemetry floor. We will make her n.p.o. after midnight. No caffeine. We will set her up for a stress test and an echocardiogram in the a.m. and consult Cardiology accordingly. She states she gets her medications from [facility]. PAST MEDICAL HISTORY: 1. Hypertension. 2. Coronary artery disease status post CABG in 2016. 3. Hyperlipidemia. 4. 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 Under the care of Pain Clinic in [place]. 5. COPD. 6. Tobacco dependence. 7. Constipation. 8. Sarcoidosis diagnosed over 10 years ago. PAST SURGICAL HISTORY: 1. Total hysterectomy. 2. CABG in [place] [address] Crowley. 3. TMJ surgery. 4. Tonsillectomy. 5. Appendectomy. SOCIAL HISTORY: She lives in [facility] in [place]. She is a housewife. She has 2 sons as well as 2 children, 5 and 7 with Down and autism. She reports that she does have some drinks on the weekend occasionally, some wine with dinner. No illicit drugs. ALLERGIES: Wellbutrin. HOME MEDICATIONS: Have not been verified. REVIEW OF SYSTEMS: Completely negative except for those mentioned in HPI. PHYSICAL EXAMINATION: VITAL SIGNS: Temperature is 98.4 degrees, heart rate 76, respirations 18, blood pressure 121/83, O2 is 95% on room air. GENERAL: Ms. Guerra is a 43-year-old, female who is sitting up straight in the bed cross- legged in no acute distress. HEENT: Atraumatic, normocephalic. PERRL. NECK: Supple. Trachea midline. CARDIOVASCULAR: S1, S2 appreciated. No murmurs, gallops, rubs noted. RESPIRATORY: Lung sounds clear bilaterally. GI: Is soft, nontender, nondistended. Positive bowel sounds 4 quads. EXTREMITIES: Lower extremities are negative for edema. Bilateral pedal pulses are bounding. NEUROLOGIC: No focal deficits noted. DIAGNOSTIC DATA: Chest x-ray: No acute abnormality. LABORATORY DATA: Two sets of cardiac enzymes have been negative. AST of 54, ALT of 44. White count 10, hemoglobin and hematocrit of 17 and 50, platelets 229,000. ASSESSMENT AND PLAN: 1. Chest pain in a patient with known coronary artery disease status post coronary artery bypass grafting in 2017 without any follow up since her discharge from [facility]. We will continue with full-dose aspirin. Add a statin. Monitor on the medical telemetry floor, make her n.p.o. after midnight, set her up for a stress test and echocardiogram in the a.m. consult Cardiology accordingly. 2. Hypertension. 3. Sarcoidosis diagnosed 10 years ago. 4. Hyperlipidemia. We will continue statin and check lipid profile. 5. Transaminitis. This appears to be somewhat chronic. The patient states that she is not an alcoholic. Never been diagnosed with alcoholism. She does drink occasionally on the weekends as well as might have an occasional wine with dinner. 6. Recent stressors and depression. She does have a psychologist, but she has not followed up in some time. 7. Chronic obstructive pulmonary disease without exacerbation. 8. Chronic pain syndrome secondary to a congenital right hip issue that causes neck and back pain. She is followed by Pain Clinic in [place]. 9. Further recommendation to follow physician evaluation, laboratory and diagnostic data. Dictated by LYN Crandall for Padmini Hagan MD cc: Padmini Hagan MD I performed a face to face encounter on the patient. I reviewed all labs and imaging on the patient. I agree with the H&P as dictated. is a 43 year old female with a history of CAD s/p CABG, hypertension, and bipolar disorder who presented to the ER with a chief complaint of palpitations and chest pain. She reports that she has not been able to follow up as outpatient with a outpatient receptionist because she lost her insurance. She now has health insurance and is seeking care. On exam, the patient appears anxious. Her breath sounds are clear to auscultation bilaterally. No peripheral edema noted. Her initial cardiac enzymes are negative. Will admit the patient and rule out MS with serial cardiac enzymes and EKGs. Will restart her cardiac medications and order a stress test to be done in the morning. KIRK
[2019-02-22] MEDS: OXY IR PO PRN (23:40)
[2019-02-23] MEDS: PRILOSEC PO SCH (06:14)
--- NOTE | 2019-02-23 06:58 | Diag Imaging Result Doc PS360 ---
EXAM: CHEST-PORTABLE 02/23/2019 HISTORY: Chest Pain TECHNIQUE: AP portable at 0612 COMMENT: There is a calcified node in the right hilum. There are sternotomy wires. There is a granuloma in the right lower lobe. Compared to the previous study of 02/22/2019 considering differences in technique there has been no significant change. IMPRESSION: Stable chest. Electronically signed by Zane Villafana 02/23/2019 6:56 AM
--- NOTE | 2019-02-23 07:07 | EKG Report ---
Test Performed on : 02/23/2019 07:00:26 AM Test Reason : fu CP Blood Pressure : / mmHG Vent. Rate : 069 BPM Atrial Rate : 069 BPM P-R Int : 120 ms QRS Dur : 070 ms QT Int : 420 ms P-R-T Axes : 021 051 077 degrees QTc Int : 450 ms Normal sinus rhythm. Nonspecific T wave abnormality Abnormal ECG When compared with ECG of 22-FEB-2019 12:34, (Unconfirmed) Peaked inferior lead P waves are no longer noted. Confirmed by Haile LOVE, Constantino Blankenship ([id number]) on 02/23/2019 10:09:58 PM
[2019-02-23 07:33] LABS: BASO# 0.02 X1000 (0.0-0.2); BASO% 0.2 % (0.0-0.8); EOS% 1.2 % (0.0-10.0); HEMATOCRIT 43.9 % (37.0-47.0); HEMOGLOBIN 14.7 g/dL (12.0-16.0); LYMPH# 1.93 X1000 (1.2-3.4); LYMPH% 23.8 % (20.5-51.1); MCH 33.3 PG (27-31); MCHC 33.5 g/dL (33-37); MCV 99.3 FL (81-99); MONO# 0.65 X1000 (0.11-0.59); NEUT% 66.8 % (42.2-75.2); PLT 186 X1000 (130-400); RBC 4.42 XMIL (4.2-5.4); RDW 12.6 % (11.5-14.5)
[2019-02-23 07:57] LABS: AGAP 13; ALB/GLOB RATIO 1.8; ALKALINE PHOSPHATASE 82 U/L (32-104); BUN 9 mg/dL (8-22); CALCIUM 8.7 mg/dL (8.8-10.2); CHLORIDE 97 mmol/L (98-107); COSMO 273; CREATININE 0.6 mg/dL (0.5-0.9); ESTIMATED GFR > 60; GLUCOSE 107 mg/dL (70-104); GOT 52 U/L (10-30); GPT 41 U/L (10-36); POTASSIUM 3.9 mmol/L (3.5-5.1); SODIUM 137 mmol/L (136-145); TCO2 27 mmol/L (25-35); TOTAL BILIRUBIN 0.96 mg/dL (0.20-1.00); TOTAL PROTEIN 6.2 g/dL (6.3-8.3)
[2019-02-23] MEDS ORDERED: ASPIRIN PO SCH (09:00)
[2019-02-23] MEDS: OXY IR PO PRN ×2 (09:27→18:46)
[2019-02-23] MEDS: MS CONTIN PO SCH ×2 (09:28→21:33)
[2019-02-23] MEDS: ASPIRIN EC PO SCH (09:42)
[2019-02-23] MEDS: PRINIVIL PO SCH (09:43)
--- NOTE | 2019-02-23 09:52 | Diag Imaging Result Doc PS360 ---
EXAM: KNEE 3 VIEWS LEFT INDICATION: pain s/p fall 3 months ago TECHNIQUE: 3 views COMPARISON: None. FINDINGS: There is no discrete fracture, dislocation, or significant intrinsic osseous lesion. The visualized joint spaces are essentially unremarkable. There are metallic clips in the soft tissues medial to the distal femur. Surrounding soft tissues are grossly unremarkable, otherwise. IMPRESSION: No evidence of acute osseous abnormality. Electronically signed by Justin Lopez 02/23/2019 9:50 AM
[2019-02-23 10:11] LABS: HEMOGLOBIN A1C 5.6 % (4.8-6.0)
[2019-02-23] MEDS ORDERED: LOVENOX SUBQ SCH (11:00)
--- NOTE | 2019-02-23 11:16 | PROGRESS NOTE ---
DATE: 02/23/2019 SUBJECTIVE: The patient is sitting up in bed. She complains of chest tightness that she rates at about a 2/10 in intensity. She denies having any shortness of breath, but does complain of occasional palpitations. OBJECTIVE: Vital Signs: Temperature 98 degrees, blood pressure 113/70, heart rate 98, respirations 16, O2 saturation 96% on room air. General: This is a middle-aged female sitting up in bed in no acute distress. Heart: S1, S2 normal. Regular rate and rhythm. Lungs: Clear to auscultation bilaterally. Abdomen: Positive bowel sounds. Soft, nontender, nondistended. Extremities: No edema, no cyanosis. Neurologic: The patient is alert and oriented x4. LABS: White blood cell count 8, hemoglobin 14, hematocrit 43, platelets 186. Sodium 137, potassium 3.9, chloride 97, CO2 27. BUN 9, creatinine 0.6, glucose 107. Troponin less than 0.01 x3. ASSESSMENT AND PLAN: 1. Chest pain. Given the patient's extensive cardiac history, the patient is scheduled to undergo a stress test today. We will also consult with the laborer pipelines. We will continue on the current cardiac medications. 2. Bipolar disorder. The patient is not on any medication. We will consult with Manual Winder to arrange for outpatient psychiatric follow-up for the patient now that she has insurance coverage. 3. Hypertension. Continue on lisinopril. 4. Tremor. The patient reports that she has been having increasing tremor and gait instability. We will consult with the neurologist for further recommendations. 5. Chronic obstructive pulmonary disease. Stable. We will start the patient on prn bronchodilator therapy. 6. Tobacco dependence. The patient has been counseled about smoking cessation. 7. Chronic neck and back pain. Continue on MS Contin. 8. Deep vein thrombosis prophylaxis. Will start the patient on Lovenox. cc: Padmini Hagan MD MTDD
[2019-02-23] MEDS ORDERED: LEXISCAN ONE (11:36)
--- NOTE | 2019-02-23 16:32 | Diag Imaging Result Document ---
PROCEDURE NAME: MYOCARDIAL PERF SCAN, STR/REST - 02/23/2019 STUDY: Rest/stress Lexiscan myocardial perfusion study. INDICATION: Patient with chest pain. DESCRIPTION: The patient came into the nuclear lab and received a rest injection of technetium 99 sestamibi 12.4 mCi. Multiple tomographic views of the cardiac structures were obtained at rest. Subsequently, the patient underwent a Lexiscan protocol; 0.4 mg of Lexiscan were infused. At peak infusion she was injected with technetium 99 sestamibi 36.5 mCi. Multiple tomographic views of the cardiac structures were obtained following the completion of the protocol. SUMMARY OF THE ELECTROCARDIOGRAPHIC PORTION OF THE STUDY: Resting ECG shows sinus rhythm with a rate of 62 beats per minute. Resting blood pressure is 118/83. Resting ECG shows nonspecific T wave in the precordial leads. During the protocol the heart rate increased to a maximum of 93 beats per minute. Blood pressure went up to 134/88. The patient reported no chest pain, shortness of breath, or palpitations. ECG showed no ischemic changes. Following the completion of the test, heart rate and blood pressure returned back to baseline. CONCLUSION: In summary, the electrocardiographic response to infusion of Lexiscan is normal. SUMMARY OF THE MYOCARDIAL PERFUSION PORTION OF THE STUDY: Poststress tomographic views of the left ventricle showed normal homogeneous distribution of the radiotracer throughout the entire left ventricular myocardium. There was no evidence of any postexercise defect. The rest images showed normal perfusion. Polar plots revealed the same. No evidence of neither inducible ischemia nor a myocardial scar. Gated SPECT shows normal left ventricular systolic function. Ejection fraction is 83% with normal ventricular volume and no wall motion abnormality. The lung/heart rate is normal. TID is normal. CONCLUSION: In summary, this study shows: 1. Normal electrocardiographic response to a Lexiscan protocol. 2. Normal poststress myocardial perfusion scan. There is no scintigraphic evidence of pharmacologic-induced myocardial ischemia. 3. Normal left ventricular systolic function with ejection fraction estimated at 83% with normal ventricular volume and no wall motion abnormality. This study represents a low risk for ischemic events. cc: Marcos Russell MD
--- NOTE | 2019-02-23 19:04 | ECHO REPORT ---
ORDER DATE: 02/23/2019 INDICATION: Chest pain, hypertension. M-MODE MEASUREMENTS: Left ventricle end diastole: 4.5. Left ventricle end systole: 2.4. Posterior wall: 1.1. Interventricular septum: 1.1. Left atrium: 3.7. Aortic diameter: 2.9. SUMMARY OF 2-DIMENSIONAL IMAGIN. Left ventricular function is normal. Ejection fraction is estimated at 60% to 65%. There is no wall motion abnormality noted. 2. The right ventricle appears to be normal. 3. The aortic valve looks normal. Color flow mapping unremarkable. 4. The tricuspid valve shows a mild degree of regurgitation. Pulmonary pressure is estimated at 28 mmHg. The inferior vena cava is not dilated. 5. The pulmonic valve is normal. Color flow mapping unremarkable. 6. The mitral valve looks normal. Color flow mapping unremarkable. 7. Pulsed wave Doppler of mitral inflow shows normal E/A ratio. 8. Tissue Doppler of septal and lateral mitral annulus averages 7 cm. 9. There is no diastolic dysfunction. 10.There is no pericardial effusion, no mass, no thrombus. 11.The left atrium is mildly enlarged. SUMMARY: This study shows: 1. Normal left ventricular systolic function. 2. No diastolic dysfunction. 3. Pulmonary pressure of 28 mmHg. 4. No evidence of any significant valvular abnormality. Clinical correlation recommended. cc: Marcos Russell MD
--- NOTE | 2019-02-23 19:42 | CONSULTATION ---
DATE OF CONSULTATION: 02/23/2019 IMPRESSION: 1. Chest discomfort with clinical presentation predominantly atypical for myocardial ischemia. Consider also possible upper gastrointestinal source of symptoms. 2. Atherosclerotic coronary disease. Patient is status post coronary bypass grafting in 2017 at [facility] in [place]. Lexiscan myocardial perfusion study last year was normal, as was echocardiography. 3. Hypertension. 4. Hyperlipidemia. 5. Chronic cigarette use. 6. Bipolar disorder. 7. Sarcoidosis. RECOMMENDATIONS: 1. Agree with evaluation with Lexiscan myocardial perfusion study and echocardiography. 2. If cardiology study is negative, would consider alternative etiologies for patient's chest symptoms such as gastroesophageal reflux or other upper gastrointestinal source. 3. Smoking cessation strongly advised. HISTORY: This 43-year-old white female with past history of atherosclerotic coronary disease with previous coronary bypass grafting in May 2017 at [facility] in [place], hypertension, hyperlipidemia, chronic cigarette use, chronic pain disorder, bipolar disorder and continued cigarette use was admitted to the emergency room yesterday because of chest discomfort. She relates that yesterday morning after getting her kids off to school on the school bus, she went back in the house and started feeling central chest discomfort which was burning and tightness in nature. There was some associated mild palpitations as well as nausea. She had some vomiting as well. Her chest discomfort persisted without interruption and she ultimately went to the emergency room for evaluation. All in all, her chest discomfort lasted several hours. She has been under a fair amount of emotional stress over the past couple of years. She relates feeling depressed and also adds that she has bipolar disorder. She had cardiology evaluation last year after being admitted for chest pain with negative Lexiscan sestamibi study and echocardiography. PAST MEDICAL HISTORY: 1. Atherosclerotic coronary disease. 2. Hypertension. 3. Hyperlipidemia. 4. Chronic back and neck pain. Patient goes to a pain clinic in [place]. 5. Chronic obstructive pulmonary disease. 6. Sarcoidosis. PAST SURGICAL HISTORY: Also includes total hysterectomy, TMJ surgery, tonsillectomy, and appendectomy. ALLERGIES: She is allergic or intolerant to Wellbutrin. MEDICATIONS PRIOR TO ADMISSION: As listed. SOCIAL HISTORY: She is . She has 2 sons as well as 2 younger children ages 5 and 7 with special needs. She smokes a pack cigarettes daily. She drinks occasional alcoholic beverage. FAMILY HISTORY: Positive for coronary disease. REVIEW OF SYSTEMS: Pulmonary: Noncontributory beyond history of present illness. Gastrointestinal: Noncontributory beyond history present illness. Constitutional: Noncontributory beyond history of present illness. Remainder of review of systems negative/noncontributory beyond history present illness with 14 total systems reviewed. PHYSICAL EXAMINATION: Reveals an overweight, adult female in no distress.Vital signs: Blood pressure 113/70, heart rate 98, oxygen saturation 96% on room air. HEENT: Extraocular movements appear intact. Mucous membranes are moist. Neck: Supple. No jugular venous distention. There are no carotid bruits. Chest: Clear to auscultation bilaterally. Cardiac Exam: Reveals a regular rate and rhythm without appreciable murmur or gallop. Abdomen: Soft. Bowel sounds normal. Extremities: Without edema. Neurologic: Reveals her to be alert and fully oriented. Speech is fluent. She moves all 4 extremities equally well. Skin: Warm dry. Psychiatric: Reveals her mood to be appropriate. PERTINENT DATA: Twelve lead EKG demonstrates normal sinus rhythm and mild diffuse nonspecific T- wave flattening. LABORATORY DATA: Includes a. White blood cell count 8.1, hematocrit 43.9, hemoglobin 14.7, platelet count 186,000. Sodium 137, potassium 3.9, chloride 97, carbon dioxide 27, BUN 9, creatinine 0.6. Glucose 107. Initial troponin T less than 0.01. Followup troponin T less than 0.01 and less than 0.01. TSH 1.99. cc: Evaristo Freedman MD
[2019-02-23] MEDS: LIPITOR PO SCH (21:39)
--- NOTE | 2019-02-23 22:33 | CONSULTATION ---
DATE OF CONSULTATION: 02/23/2019 REASON FOR CONSULT: Tremor and gait instability. HISTORY OF PRESENT ILLNESS: This is a 43-year-old, right-handed, female with history of coronary artery disease status post CABG in 2017 at [facility], hypertension, hyperlipidemia, chronic pain, bipolar depression, and ongoing tobacco abuse. She came to the hospital with complaints of chest pain and is being worked up for that. While here, she mentioned that she has been having some other symptoms for around a year which included tremor, gait difficulty, mental fogging. She states that she does not have a primary care physician. She reports that actually her tremor has been going on for as long as she can remember since she was much, much younger. She is adopted, but does know that on the few records that she has, she had a maternal grandfather who also had tremor. There is someone in her family who had Parkinson disease and, therefore, she decided to look up her symptoms and is quite concerned that she may have early onset Parkinson disease. Her tremor fluctuates, it involves her hands symmetrically. Nervousness and stress tend to worsen the tremor, while clonazepam helped the tremor in the past. She does not notice change with caffeine or alcohol intake. She reports to me that she drinks anywhere from 0 to 2 bottles of wine a week. Sometimes the tremor makes it difficult for her to write. She does not report resting tremor. She also reports mental fogginess. She says it feels squirrely inside her head. Sometimes she has difficult times getting her words out. This has been ongoing for a year. She also reports some problems with her gait which have been ongoing for a year. She reports that sometimes she feels a little off balance. In general, she tells me that her left ankle tends to give way and she rolls it. She has had a fall before in the past. She has not had loss of consciousness. There has not been incontinence, bowel or bladder change. She denies focal weakness. She reports being under significant stress at home with 2 special needs children, and an 18-year-old son. She reports not having any help, not sleeping well, waking up multiple times a night. She reports being over tired. She becomes tearful during our interview. The patient has had a CABG a couple of years ago at [facility], but has not followed up since that time. She reports that right after this surgery she lost her insurance and had some difficulty off and on with getting her insurance so that she could have follow up. She has been seeing "doc in the box" physicians for her primary care and prescriptions. She has been following with a pain clinic physician. She has not seen a psychiatrist to follow up with her depression and bipolar although, apparently, she took medications in the past. PAST MEDICAL/SURGICAL HISTORY: She reports bipolar depression, coronary artery disease status post CABG 2017 a [facility], hypertension, hyperlipidemia, chronic pain under the care of Pain Clinic in [place], COPD, ongoing tobacco abuse. She reports sarcoidosis diagnosed over 10 years ago, hysterectomy, TMJ surgery, tonsillectomy, appendectomy. FAMILY HISTORY: Largely unknown as she was adopted. She has a maternal grandfather who had tremor. 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 She drinks 0 to 2 bottles of wine a week. No illicit's. She does continue to smoke. ALLERGIES: Listed to Wellbutrin. CURRENT MEDICATIONS: Reviewed in the chart include aspirin, Lipitor, MS Contin, and oxycodone. REVIEW OF SYSTEMS: Balance of 12 was conducted and is otherwise negative, except that detailed in the HPI. PHYSICAL EXAMINATION: Vital Signs: She is afebrile. Her blood pressure is 113/70, pulse 98, respirations 16, saturation 96% on room air. Neurologic: Ms Guerra is sitting up in bed, awake, alert, no acute distress. She is fully oriented. Speech fluent. No language disturbance, no dysarthria. Follows simple and complex commands. Pupils equal, round, reactive to light. Gaze is conjugate. Extraocular movements are full. Face symmetric with equal activation. Visual howard intact to direct confrontational testing. She can hear. Facial sensation reported intact. Tongue is midline. Palate elevates symmetrically. Shoulder shrug is full. Normal tone and bulk. Her strength is preserved in the arms and legs, as tested. She reports intact sensation to light touch, temperature, vibration, and distal joint position sense. There is not a resting tremor. With arms outstretched, there is only a very subtle fine tremor of the hands bilaterally. Finger- to-nose is intact without prominent tremor. Rapid alternating movements are intact bilaterally. [id number] intact. Reflexes are 2+ at the wrists and ankles. No clonus. Plantar response is downgoing. Gait: Normal casual gait with good stride and good arm swing. Good tandem and heel- toe walking. Absent Romberg sign. There is no asterixis. DIAGNOSTICS: Labs reviewed in the chart. Normal BUN, creatinine, sodium. Blood sugar 107-143. A1c of 5.6. Calcium 8.7, magnesium normal. AST and ALT 52 and 41. TSH normal. ASSESSMENT AND PLAN: Sensation of mental fogginess, occasional gait disturbance, and tremor. Neurological exam is essentially normal without concerning features today. There may be a very subtle symmetric tremor with the arms outstretched. I see no evidence of Parkinson disease. Her tremor may be an exaggerated physiologic tremor, though essential tremor is also a possibility. It is not very prominent today. She is undergoing a cardiac workup, including stress test for her presenting symptoms. I think once she is stable and recovered from those symptoms, we could see her in the clinic as an outpatient for re-evaluation. Otherwise, I have encouraged her to keep taking her medications as prescribed. To establish with a primary care physician as well as establish followup with a smelting engineer. She was strongly advised to stop smoking. Thank you for the consultation. cc: Hawa John MD
[2019-02-24] MEDS: PRILOSEC PO SCH (06:03)
[2019-02-24] MEDS: OXY IR PO PRN (06:06)
[2019-02-24 07:50] VITALS: BP 135/71
[2019-02-24 07:56] LABS: CHLORIDE 96 mmol/L (98-107); POTASSIUM 3.9 mmol/L (3.5-5.1); SODIUM 138 mmol/L (136-145); TCO2 29 mmol/L (25-35)
[2019-02-24 07:57] LABS: AGAP 13; BUN 4 mg/dL (8-22); CALCIUM 9.3 mg/dL (8.8-10.2); COSMO 273; CREATININE 0.5 mg/dL (0.5-0.9); ESTIMATED GFR > 60; GLUCOSE 109 mg/dL (70-104)
[2019-02-24] MEDS: ASPIRIN EC PO SCH (08:56)
[2019-02-24] MEDS: MS CONTIN PO SCH (08:56)
[2019-02-24] MEDS: PRINIVIL PO SCH (08:57)
[2019-02-24 08:58] LABS: FREE T4 1.1 ng/dL (0.93-1.70); TSH 4.7 uIUmL (0.27-4.20)
[2019-02-24] MEDS ORDERED: SINGULAIR PO SCH (09:00)
[2019-02-24] MEDS ORDERED: FLONASE NAS SCH (09:00)
[2019-02-24 11:42] LABS: HEPATITIS PROFILE ACUTE SEE COMMENTS
== END 2019-02-24 11:46 | disposition home or self-care (01) ==
LOC: ED 12:28 → 3N 12:28
PROVIDERS: ATTEND Internal Medicine